=== PATIENT | female | born 1980 | race Caucasian/White ===

== ENCOUNTER 2024-06-20 05:37 | Observation (INO) | payer MEDICAID ==
[2024-06-18 10:23] LABS: BASOPHILS % (AUTO) 0.4 % (0-1); EOSINOPHILS # (AUTO) 0.5 X10'3 (0-0.9); EOSINOPHILS % (AUTO) 9.1 % (0-6); LYMPHOCYTES # (AUTO) 0.9 X10'3 (1.1-4.8); LYMPHOCYTES % (AUTO) 18.3 % (21-51); MEAN CORPUSCULAR HEMOGLOBIN 29.1 PG (27.0-31.0); MEAN CORPUSCULAR HGB CONC 32.8 g/dL (33.0-36.5); MEAN CORPUSCULAR VOLUME 88.6 FL (78-98); MEAN PLATELET VOLUME 8.2 FL (7.4-10.4); MONOCYTES # (AUTO) 0.4 X10'3 (0-0.9); MONOCYTES % (AUTO) 6.9 % (2-12); NEUTROPHILS # (AUTO) 3.3 X10'3 (1.8-7.7); NEUTROPHILS % (AUTO) 65.3 % (42-75); PRE OP HEMATOCRIT 42.2 % (35.0-45.0); PRE OP HEMOGLOBIN 13.8 g/dL (12.0-16.0); PRE OP PLATELET COUNT 298 X10'3 (140-440); PRE OP WHITE BLOOD COUNT 5.1 10'3 (4.8-10.8); RED BLOOD COUNT 4.76 X10'6 (4.20-5.60); RED CELL DISTRIBUTION WIDTH 15.9 % (11.5-14.5)
[2024-06-18 10:48] LABS: ALBUMIN/GLOBULIN RATIO 1.1 (1.1-1.5); ALKALINE PHOSPHATASE 82 IU/L (46-116); BLOOD UREA NITROGEN 13 MG/DL (7-18); BUN/CREATININE RATIO 17.6 (10.0-20.0); CALCIUM 9.5 MG/DL (8.5-10.1); CHLORIDE 106 MMOL/L (99-107); CREATININE 0.74 MG/DL (0.40-0.90); PRE OP ALT 61 U/L (30-65); PRE OP ANION GAP 8 (8-16); PRE OP AST 35 U/L (10-37); PRE OP BILIRUB, TOTAL 0.9 MG/DL (0.0-1.0); PRE OP GLUCOSE 96 MG/DL (70-104); PRE OP POTASSIUM 3.9 MMOL/L (3.4-5.1); PRE OP SODIUM 141 MMOL/L (135-145); TOTAL PROTEIN 7.7 G/DL (6.4-8.2); eGFR 85 ML/MIN
[2024-06-18 11:17] LABS: PRE OP PROTIME 10.3 SECONDS (9.0-12.0)
[2024-06-18 11:47] LABS: HCG SERUM QL NEGATIVE
[~2024-06-20] VITALS: Ht 162.6 cm; Wt 102.0 kg
[2024-06-20] VITALS (30 sets, daily range): BP systolic 133–155; BP diastolic 36–93; PULSE 84–104; RESP 12–23; TEMP 97.7–98.4; O2SAT 93–100
[~2024-06-20 05:37] MED LIST: AMLO5TAB16 PO; LOSA100T58 PO
[2024-06-20] MEDS: ceFAZolin 2gm in dextrose, iso 50 ML IV ONE (06:07)
[2024-06-20] MEDS: ringers solution, lacted 1,000 ML IV SCH ×3 (06:08→15:57)
[2024-06-20] MEDS: famotidine 20mg tablet PO ONE (06:08)
[2024-06-20] MEDS ORDERED: BUPIVACAINE liposomal/PF 13.3 MG/ML vial IM ONE ×2 (06:54→07:41)
[2024-06-20] MEDS ORDERED: methylene blue (5mg/ml) 50mg/10ml ampul IV ONE (06:54)
[2024-06-20] MEDS ORDERED: BUPIVAcaine 2.5mg/ml inj 50ml vial (contains preservative) ONE ×2 (06:54→07:41)
[2024-06-20] MEDS ORDERED: morphine 4 MG/ML inj SYRINge IV PRN (07:30)
[2024-06-20] MEDS ORDERED: labetalol 20mg/4ml (5mg/ml) syringe IV PRN (07:30)
[2024-06-20] MEDS ORDERED: HYDROmorphone/PF 0.2 MG/ML SYRINGE IV PRN ×2 (07:30)
[2024-06-20] MEDS ORDERED: hydrALAZINE 20mg/ml inj. IV PRN (07:30)
[2024-06-20] MEDS ORDERED: midazolam 1 mg/ML 2ml injection ONE (07:40)
[2024-06-20] MEDS ORDERED: fentaNYL /PF 50mcg/ml 5ml ampule ONE (07:40)
[2024-06-20] MEDS ORDERED: BUPIVAcaine/PF 2.5mg/ml (0.25%) 10ml vial ONE (07:44)
[2024-06-20] MEDS ORDERED: sevoflurane 250ml liquid IH ONE (07:56)
[2024-06-20] MEDS ORDERED: propofol inj 20 ML IV ONE (08:55)
[2024-06-20] MEDS ORDERED: dexamethasone sod phosphate 4mg/ml inj. ONE (08:55)
[2024-06-20] MEDS ORDERED: 0.9 % SODIUM CHLORIDE 10 ML VIAL ONE (08:55)
[2024-06-20] MEDS ORDERED: ePHEDrine 50MG/ML INJ. ONE (08:55)
[2024-06-20] MEDS ORDERED: ondansetron/PF 4mg/2ml inj ONE (08:55)
[2024-06-20] MEDS: methylene blue (5mg/ml) 50mg/10ml ampul IV ONE (09:10)
[2024-06-20] MEDS: BUPIVAcaine 2.5mg/ml inj 50ml vial (contains preservative) SQ ONE (10:47)
[2024-06-20] MEDS: ondansetron/PF 4mg/2ml inj IV PRN ×2 (11:31→16:28)
[2024-06-20] MEDS ORDERED: morphine 2 MG/ML inj. syringe IV PRN (11:40)
[2024-06-20] MEDS: acetaminophen 1,000mg/100ml IV 100 ML IV ONE (11:41)
[2024-06-20] MEDS: proCHLORperazine 10 MG/2 ml inj IV PRN (11:41)
[2024-06-20] MEDS: morphine 2 MG/ML inj. syringe IV PRN (12:03)
[2024-06-20] MEDS: cefazolin 2gm/D5W 100mL 50 ML IV SCH (15:57)
[2024-06-20] MEDS: HYDROcodone/acetaminophen 5mg/325mg tablet PO PRN (16:03)
[2024-06-20] MEDS ORDERED: acetaminophen 325mg tablet PO PRN (20:20)
[2024-06-21] MEDS: acetaminophen 325mg tablet PO PRN (00:27)
[2024-06-21 02:00] VITALS: BP 141/36; PULSE 86; RESP 14; TEMP 98.3; O2SAT 97
[2024-06-21 05:35] LABS: BASOPHILS % (AUTO) 0 % (0-1); EOSINOPHILS % (AUTO) 0 % (0-6); HEMATOCRIT 32.7 % (35.0-45.0); HEMOGLOBIN 10.8 g/dl (12.0-16.0); LYMPHOCYTES # (AUTO) 0.8 X10'3 (1.1-4.8); LYMPHOCYTES % (AUTO) 8.4 % (21-51); MEAN CORPUSCULAR HEMOGLOBIN 29.3 PG (27.0-31.0); MEAN CORPUSCULAR VOLUME 88.7 FL (78-98); MEAN PLATELET VOLUME 8.4 FL (7.4-10.4); MONOCYTES # (AUTO) 0.5 X10'3 (0-0.9); MONOCYTES % (AUTO) 5.7 % (2-12); NEUTROPHILS # (AUTO) 8.2 X10'3 (1.8-7.7); NEUTROPHILS % (AUTO) 85.9 % (42-75); PLATELET COUNT 228 X10'3 (140-440); RED BLOOD COUNT 3.69 X10'6 (4.20-5.60); RED CELL DISTRIBUTION WIDTH 15.5 % (11.5-14.5); WHITE BLOOD COUNT 9.6 X10'3 (4.5-11.0)
[2024-06-21 06:00] VITALS: BP 126/80; PULSE 88; RESP 18; TEMP 95.5; O2SAT 97
[2024-06-21 07:10] VITALS: RESP 18; O2SAT 97
[2024-06-21 12:45] VITALS: RESP 20
== END 2024-06-21 15:15 | disposition home or self-care (01) ==
LOC: PAS 05:37 → SUR 3N 11:59
PROVIDERS: ADMIT Surgery; ATTEND Surgery
DX: C50.912 Malignant neoplasm of unspecified site of left female breast (principal); I10 Essential (primary) hypertension; G47.30 Sleep apnea, unspecified; Z17.0 Estrogen receptor positive status [ER+]; Z90.12 Acquired absence of left breast and nipple; Z92.21 Personal history of antineoplastic chemotherapy; Z79.899 Other long term (current) drug therapy
CPT/HCPCS: 19303; 36415; 38525; 38900; 71045; 80053; 82948; 84703; 85025; 85610; 85730; 93005; 96365; 96366; 96375; 96376; A6258; G0378; J0131; J0666; J0690; J0780; J1100; J2250; J2270; J2405; J2704; J3010; J3490; J7120; Q9968; A4215; A4615; A4618; A6213; A6253; A6449; A7000